=== PATIENT | male | born 1975 | race African-American/Black ===

== ENCOUNTER 2018-10-31 17:56 | Emergency (ER) | payer OTHER ==
[~2018-10-31] VITALS: Ht 175.3 cm; Wt 87.8 kg
[2018-10-31 18:02] VITALS: BP 139/70
--- NOTE | 2018-10-31 19:11 | NUR ---
DC EDUCATION PROVIDED, PT DEMONSTRATES UNDERSTANDING. PT AMBULATED STEADILY TO DC WITH RN
== END 2018-10-31 19:13 | disposition home or self-care (01) ==
LOC: ED 18:50
DX: L89.892 Pressure ulcer of other site, stage 2 (principal); F17.210 Nicotine dependence, cigarettes, uncomplicated
CPT/HCPCS: 82962; 99282